=== PATIENT | male | born 1995 | race Caucasian/White ===

== ENCOUNTER → 2020-04-16 14:05 | Outpatient (BNVA) | payer OTHER, SELFPAY | PROVIDERS: Visit Provider Nurse Practitioner Family | DX: S62.317A Displaced fracture of base of fifth metacarpal bone, left hand, initial encounter for closed fracture (principal); X58.XXXA Exposure to other specified factors, initial encounter; M79.642 Pain in left hand | CPT/HCPCS: 73130 ==